=== PATIENT | male | born 1990 | race Caucasian/White ===

== ENCOUNTER → 2020-08-10 13:06 | Outpatient (CLI) | payer OTHER, SELFPAY ==
--- NOTE | ~2020-08-10 | XR_ITS ---
XR ankle RT min 3V DATE: 08/10/2020 14:04 INDICATION: Sprain. Right ankle pain. TECHNIQUE: 4 views COMPARISON: None FINDINGS: There is mild anterior periarticular spurring of the distal tibia consistent with mild oste oarthritis. No fracture or dislocation of the ankle or disruption of the ankle mortise. IMPRESSION: No fracture or dislocation Reviewed, dictated and finalized at location A. COMMUNICATIONS SPECIALIST IMPRESSION: No fracture or dislocation
== END ==
PROVIDERS: PCP Family Medicine; Visit Provider Family Medicine
DX: S93.401A Sprain of unspecified ligament of right ankle, initial encounter (principal)
CPT/HCPCS: 73610

== ENCOUNTER → 2024-04-10 15:52 | Outpatient (CLI) | payer BC, SELFPAY ==
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
== END ==
PROVIDERS: PCP Family Medicine; Visit Provider Family Medicine
DX: G89.29 Other chronic pain (principal); M25.532 Pain in left wrist
CPT/HCPCS: 73110